=== PATIENT | male | born 1950 | race Caucasian/White ===

== ENCOUNTER 2016-10-08 10:22 | Emergency (ER) | payer MEDICARE, BC ==
[2016-10-08] MEDS ORDERED: Ketorolac INJ* 30 MG/ML 1 ML VIAL IM ONE (13:27)
--- NOTE | 2016-10-08 13:41 | RAD ---
CLINICAL HISTORY: Flank pain COMPARISON: October 01, 2002 TECHNIQUE: Multiple contiguous axial CT scans were obtained of the abdomen and pelvis, without intravenous contrast enhancement. Coronal and sagittal multiplanar reformations are submitted for review. Oral contrast was not administered. FINDINGS: The study is limited by the lack of intravenous contrast. This limits evaluation of the solid organs and vasculature. LUNG BASES: The lung bases are clear. LIVER: The liver is normal in shape, size, contour, and attenuation. BILE DUCTS: There is no intrahepatic or extrahepatic biliary dilatation. GALLBLADDER: The gallbladder is normal, without pericholecystic inflammatory change. PANCREAS: The pancreas is normal, without mass or ductal dilatation. SPLEEN: There are multiple calcified granulomas of the spleen UPPER GI TRACT: Evaluation of the gastrointestinal tract is limited by incomplete gastric distention. The upper GI tract is unremarkable. SMALL BOWEL AND MESENTERY: The small bowel is normal in contour, course, and caliber. There is no obstruction or dilatation. COLON: The colon is normal in contour, course, caliber. There is no pericolonic inflammatory change. ADRENALS: Normal bilaterally. KIDNEYS: There is mild perinephric stranding on the left. There is a 0.4 cm calculus of the proximal left ureter at the UPJ with mild pelvocaliectasis.. BLADDER: The bladder is smooth in contour. PELVIC ORGANS: The prostate gland is normal. The seminal vesicles are symmetric. 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 IVC: Unremarkable LYMPH NODES: There is no lymphadenopathy by size criteria. ABDOMINAL WALL: There is no evidence for abdominal wall hernia. BONES AND SOFT TISSUES: Degenerative changes are noted OTHER: None IMPRESSION: 0.4 CM LEFT UPJ STONE WITH MILD LEFT-SIDED HYDRONEPHROSIS
[2016-10-08 14:07] LABS: Hematocrit 50 % (42-52); Mean Corpuscular HGB Conc 32 g/dl (31-36); Mean Corpuscular Hemoglobin 28 pg (27-31); Mean Corpuscular Volume 88 fL (80-94); Mean Platelet Volume 7 um3 (7.4-10.4); Red Cell Distribution Width 14 % (10.5-15); White Blood Count 15.6 10^3/ul (3.5-10.8)
[2016-10-08 14:17] LABS: Urine Bacteria Absent (Absent); Urine Bilirubin Negative (Negative); Urine Glucose 1+(50 mg/dL) (Negative); Urine Nitrite Negative (Negative)
[2016-10-08 14:24] LABS: Albumin 4.4 g/dL (3.2-5.2); BUN/Creatinine Ratio 18.9 (8-20); Calcium 9.7 mg/dL (8.6-10.3); EGFR African American 72.5 (>60); EGFR Non-African American 56.4 (>60); Globulin 3.6 g/dL (2-4); Potassium 4.1 mmol/L (3.5-5.0); Total Bilirubin 1.3 mg/dL (0.2-1.0)
--- NOTE | 2016-10-08 14:52 | RAD ---
HISTORY: Left kidney stone COMPARISONS: CT dated September 08, 2016 VIEWS: Frontal views of the abdomen. FINDINGS: BOWEL: There is a nonobstructive bowel gas pattern. There is a large amount of stool within the colon. CALCULI: There is a 0.4 cm calculus overlying the left hemiabdomen correspond to the finding noted on CT BONES AND SOFT TISSUES: Mild degenerative changes are noted OTHER FINDINGS: The lung bases are clear. There is no subphrenic gas. IMPRESSION: LEFT NEPHROLITHIASIS
[2016-10-08 17:40] VITALS: BP 141/86
--- NOTE | 2016-10-08 21:20 | CONS ---
CC: Dr. Laura Durand, Emergency Department; Conrad Lee MD * UROLOGY CONSULTATION: DATE OF CONSULTATION: 10/08/16 AGE: 66 years, male. REQUESTING PHYSICIAN: Dr. Laura Durand in the emergency department. DIAGNOSES: 1. Left flank pain. 2. Calculus, left proximal ureter. HISTORY OF PRESENT ILLNESS: Matheus Jensen is a 66-year-old gentleman, who had a sudden onset of left flank pain earlier this morning. He presented to the emergency room after the pain got fairly severe and a CT scan revealed an approximately 4 mm calculus in the left proximal ureter at or just below the left ureteropelvic junction. This is associated with mild left hydronephrosis. PAST MEDICAL HISTORY: Unremarkable. Specifically, there is no history of any major cardiovascular issues. His major medical issues include: 1. Hypertension. 2. Hypothyroidism. 3. Borderline diabetes mellitus. PAST SURGICAL HISTORY: Significant for left leg patellar tendon surgery. MEDICATIONS ON ADMISSION: 1. Metformin 250 mg twice a day. 2. Levothyroxine 137 mcg daily. 3. Aspirin 81 mg daily. 4. Diltiazem 1 tablet daily. 5. Losartan 100 mg daily. 6. Lipitor 10 mg daily. ALLERGIES: No known drug allergies. REVIEW OF SYSTEMS: He is otherwise in excellent health. He denies any chest pain or shortness of breath. PHYSICAL EXAM: General: Reveals a pleasant middle-aged gentleman. Vital Signs : Blood pressure is 140/80, pulse 80 per minute, regular. Cardiovascular Exam: Regular rate and rhythm. S1 and S2. Lungs are clear bilaterally. Abdomen is soft with mild left flank tenderness. DIAGNOSTIC STUDIES/LAB DATA: I reviewed the CT and the labs and had a detailed discussion with the patient and with Dr. Durand regarding the management options. The complicating factor is that he is supposed to leave town in the next 24 to 36 hours and will be away for 2 weeks. PLAN: My recommendation is for conservative management in the form of increased hydration, oral analgesics as needed, and alpha-blockers to try and promote medical expulsive therapy. I have instructed him to call me if there is any severe pain or vomiting. Otherwise, I plan to see him in my office in followup within the next 24 hours. [id number]/[facility] #: [id number] [facility]
--- NOTE | 2016-10-08 22:57 | ED ---
Sally Pablo SooYoung, scribed for Laura Durand MD on 10/08/16 at 1322 . Back Pain - HPI Summary HPI Summary: A 66y/o M presents to ED referred by Dr. Alejo, PCP is Dr. Lee, with c/o fluctuating L flank pain onset approx 0630. Pain radiates occasionally toward groin. At bedside, pain is rated as a 4-5 out of 10. No specified associated sx. Denies dyspnea, CP, abd pain. Has not taken any pain meds today. PMHx: particularly no hx kidney stones. Medications reviewed. Takes metformin for insulin resistance. HbA1c's ar 6.4 range per pt. Also hx HTN. - History of Current Complaint Chief Complaint: EDFlankPain Stated Complaint: LT SIDE BACK/FLANK PAIN Time Seen by Provider: 10/08/16 13:17 Hx Obtained From: Patient Onset/Duration: Gradual Onset, Lasting Hours, Still Present Onset/Duration: Started Hours Ago, Atraumatic, Still Present Timing: Constant Back Pain Location: Is Discrete @ - L flank, Radiates To - left groin Severity Initially: Moderate Severity Currently: Moderate Pain Intensity: 5 Pain Scale Used: 0-10 Numeric Character: Sharp Aggravating Symptom(s): Nothing Alleviating Symptom(s): Nothing Associated Signs And Symptoms: Positive: Flank Pain, Other - neg: CP, dyspnea. Negative: Abdominal Pain - Allergies/Home Medications Allergies/Adverse Reactions: Allergies Allergy/AdvReac Type Severity Reaction Status Date / Time No Known Allergies Allergy Verified 12/12/14 13:27 Home Medications: Home Medications Diltiazem HCl PO DAILY 10/08/16 [History] Metformin HCl 250 mg PO BID 10/08/16 [History Confirmed 10/08/16] PMH/Surg Hx/FS Hx/Imm Hx Previously Healthy: No Endocrine/Hematology History: Reports: Hx Diabetes - pre-diabetic, insulin resistant, Hx Thyroid Disease - hypo Cardiovascular History: Reports: Hx Hypercholesterolemia, Hx Hypertension Denies: Hx Pacemaker/ICD, Hx Peripheral Vascular Disease Respiratory History: Reports: Hx Sleep Apnea Denies: Hx Asthma, Hx Chronic Obstructive Pulmonary Disease (COPD) GI History: Denies: Hx Ulcer Musculoskeletal History: Denies: Hx Arthritis, Hx Osteoporosis Sensory History: Denies: Hx Cataracts, Hx Contacts or Glasses, Hx Glaucoma, Hx Hearing Aid Opthamlomology History: Denies: Hx Cataracts, Hx Contacts or Glasses, Hx Glaucoma Neurological History: Denies: Hx Headaches, Hx Seizures, Hx Transient Ischemic Attacks (TIA) Psychiatric History: Denies: Hx Anxiety, Hx Depression, Hx Panic Disorder - Surgical History Surgery Procedure, Year, and Place: Tonsillectomy. Vasectomy. [place] Teeth Removal. lt patella tendon 2011 Hx Anesthesia Reactions: No Infectious Disease History: No Infectious Disease History: Denies: Hx Hepatitis, Hx Human Immunodeficiency Virus (HIV), Traveled Outside the [place] in Last 30 Days - Family History Known Family History: Positive: Cardiac Disease, Hypertension, Diabetes, Other - CVA, CA - Social History Occupation: Employed Full-time Lives: With Family Alcohol Use: Weekly Alcohol Amount: 1-2/WEEK Substance Use Type: Reports: None Smoking Status (MU): Never Smoked Tobacco Review of Systems Constitutional: Negative Negative: Chest Pain Negative: Shortness Of Breath Gastrointestinal: Negative Positive: see HPI, flank pain - L. Negative: hematuria, incontinence Musculoskeletal: Negative Skin: Negative Neurological: Negative Psychological: Normal All Other Systems Reviewed And Are Negative: Yes Physical Exam Triage Information Reviewed: Yes Vital Signs On Initial Exam: Initial Vitals Temp Pulse Resp BP Pulse Ox 96.8 F 71 19 170/95 97 10/08/16 10:27 10/08/16 10:27 10/08/16 10:27 10/08/16 10:27 10/08/16 10:27 Vital Signs Reviewed: Yes Appearance: Positive: Well-Appearing, Well-Nourished, Pain Distress - mild Skin: Positive: Warm, Skin Color Reflects Adequate Perfusion Head/Face: Positive: Normal Head/Face Inspection Eyes: Positive: Conjunctiva Clear ENT: Positive: Normal ENT inspection Neck: Positive: Supple Respiratory/Lung Sounds: Positive: Clear to Auscultation, Breath Sounds Present Cardiovascular: Positive: RRR, Pulses are Symmetrical in both Upper and Lower Extremities. Negative: Murmur Abdomen Description: Positive: Nontender, Soft, CVA Tenderness (L). Negative: No Organomegaly, Bruit, Distended, Guarding, Hernia @, Hepatomegaly, McBurney's Point Tenderness, Peritoneal Signs, Pulsatile Mass, Splenomegaly Bowel Sounds: Positive: Present Male Genital Exam: Positive: normal genitalia Musculoskeletal: Positive: Strength/ROM Intact. Negative: Edema Left, Edema Right Neurological: Positive: Sensory/Motor Intact, Alert, Oriented to Person Place, Time. Negative: Facial Droop, Focal Deficit @, Slurred Speech Psychiatric: Positive: Normal - [place] Coma Scale Coma Scale Total: 15 Diagnostics - Vital Signs Vital Signs Temp Pulse Resp BP Pulse Ox 10/08/16 10:31 96.8 F 78 19 170/95 98 10/08/16 10:27 96.8 F 71 19 170/95 97 - Laboratory Result Diagrams: 10/08/16 13:55 10/08/16 13:55 Lab Statement: Any lab studies that have been ordered have been reviewed, and results considered in the medical decision making process. - Radiology ABD XR Xray Interpretation: Positive (See Comments) - IMPRESSION: LEFT NEPHROLITHIASIS Radiology Interpretation Completed By: Radiologist - CT ABD/PEL CT Interpretation: Positive (See Comments) - IMPRESSION: 0.4 CM LEFT UPJ STONE WITH MILD LEFT-SIDED HYDRONEPHROSIS CT Interpretation Completed By: Radiologist Re-Evaluation - Re-Evaluation 1 Re-Evaluation Time: 14:09 Change: Improved Comment: Discussing A/P CT results with pt. Awaiting call bcak from Dr. Jones, urology. Pt states having future travel plans in two days for work. 2 Re-Evaluation Time: 14:23 Change: Improved Comment: Pt taking Metformin. Discussing UA results, consult with Dr. Jones. Pt rates his pain as 1-2/10. Back Pain Course/Dx - Course Course Of Treatment: Pt is a 66 y/o M referred by PCP with c/o fluctuating L flank pain onset approx 0630. Radiating toward groin. No specified associated sx. Denies dyspnea, CP, abd pain. Has not taken any pain meds today. No PMHx of kidney stones. Medications reviewed. Pt given Toradol in ED, 30mg IM with relief. UA shows blood, not wbc's, so despite wbc count of 15.6, do not think there is UTI associated. Elevated wbc count probable stress response. ABD/PEL CT shows "0.4 CM LEFT UPJ STONE WITH MILD LEFT-SIDED HYDRONEPHROSIS." ABD XR shows left nephrolithiasis. Dr. Jones will see pt in ED. - Diagnoses Differential Diagnosis/HQI/PQRI: Positive: Neoplasm, Renal Colic, Strain, Sprain Provider Diagnoses: Blood pressure under poor control., L kidney stones with hydronephrosis - Provider Notifications Discussed Care Of Patient With: Brian Jones - urology Time Discussed With Above Provider: 14:20 Instructed by Provider To: MD Will See In ED - will review scans, requested abd XR Discharge - Discharge Plan Condition: Stable Disposition: HOME Prescriptions: Tamsulosin CAP* [Flomax CAP*] 0.4 mg PO DAILY #30 cap oxyCODONE/Acetamin 5/325 MG* [Percocet 5/325 TAB*] 1 tab PO Q4H PRN #18 tab MDD 6 PRN Reason: Pain Patient Education Materials: Kidney Stones (ED), Tamsulosin (By mouth), Oxycodone/Acetaminophen (By mouth) Referrals: Conrad Lee MD [Primary Care Provider] - Brian Jones MD [Medical Doctor] - 1 Day (Follow up with Dr. Jones tomorrow.) Additional Instructions: Follow up with Dr. Jones, urologist, tomorrow. Please return to the ED if you experience new or worsening symptoms. Consult Consult: 1515: Consult with Dr. Jones, urologist Will see pt in ED. 1726: Consult with Dr. Jones, urologist Dr. Jones saw pt in ED. States OK to D/C home and pt to f/u with Robret tomorrow. The documentation as recorded by the Sally lazaro SooYoung accurately reflects the service I personally performed and the decisions made by , Laura Durand MD.
== END 2016-10-08 17:49 | disposition home or self-care (01) ==
LOC: ED 10:22
DX: N13.2 Hydronephrosis with renal and ureteral calculous obstruction (principal); N20.0 Calculus of kidney; R10.84 Generalized abdominal pain; R06.00 Dyspnea, unspecified; R07.9 Chest pain, unspecified
CPT/HCPCS: 36415; 74000; 74176; 80053; 81003; 81015; 85025; 96372; 99282; J1885

== ENCOUNTER 2016-11-02 06:15 | Day surgery (SDC) | payer MEDICARE, BC ==
--- NOTE | 2016-10-29 21:48 | HP ---
CC: Dr. Conrad Lee * HISTORY AND PHYSICAL: DATE OF ADMISSION: 11/02/16 ADMITTING DIAGNOSES: 1. Calculus, left proximal ureter. 2. Left flank pain. PLANNED PROCEDURE: Left stent insertion and shock lithotripsy of left ureteral calculus. SURGEON: Dr. Jones. ADMITTING HISTORY AND PHYSICAL: Matheus Jensen is a 66-year-old gentleman who I had originally evaluated in the emergency department on 10/08/16 for left flank pain secondary to a calculus in the left proximal ureter. He has been managed conservatively for the last several weeks and has been on Flomax and recent followup revealed a persistent calculus in the left proximal ureter, relatively unchanged in position with persistent left hydronephrosis. PAST MEDICAL HISTORY: Significant for: 1. Diabetes mellitus. 2. Hypothyroidism. 3. Hypertension. MEDICATIONS ON ADMISSION: 1. Levothyroxine 137 mcg a day. 2. Metformin 250 mg twice a day. 3. Aspirin 81 mg daily. 4. Diltiazem 1 tablet daily. 5. Lipitor 10 mg a day. 6. Losartan 100 mg a day. ALLERGIES: No known drug allergies. REVIEW OF SYSTEMS: He is otherwise in excellent health. He is physically very active and does a lot of long distance bicycling. He denies any chest pain or shortness of breath. PHYSICAL EXAMINATION GENERAL: Reveals a pleasant, fit-appearing gentleman. VITAL SIGNS: Blood pressure is 146/90, pulse 74 per minute, regular, oxygen saturation 97% on room air. LUNGS: Clear bilaterally. CARDIOVASCULAR: Regular rate and rhythm. S1 and S2. ABDOMEN: Soft with mild left flank tenderness. IMPRESSION: A 66-year-old gentleman with a persistent left proximal ureteral calculus and mild left hydronephrosis going on for more than 3 weeks now. Plan is for left ureteral stent insertion and shockwave lithotripsy of left ureteral calculus. [id number]/[facility] #: [id number] [facility]
[~2016-11-02 06:15] MED LIST: Buffered Lidocaine 0.9% SYRIN* 5 ML/SYR SYRINGE INTRADERM ONE; Dexamethasone IV* 4 MG/ML 1 ML (4 MG) IV SLOW PU ONE; Famotidine IV* 10 MG/ML 2 ML (20 mg) IV ONE
[2016-11-02] MEDS ORDERED: Dexamethasone IV* 4 MG/ML 1 ML (4 MG) ONE (06:28)
[2016-11-02] MEDS ORDERED: cefTRIAXone(*) 2 GM ADDV.VIAL IVPB ONE (06:28)
[2016-11-02] MEDS ORDERED: Famotidine IV* 10 MG/ML 2 ML (20 mg) ONE (06:29)
[2016-11-02] MEDS ORDERED: Ondansetron INJ* 2 MG/ML VIAL ONE (07:21)
[2016-11-02] MEDS ORDERED: Propofol* 10 MG/ML 20 ML BTL IV PUSH ONE (07:21)
[2016-11-02] MEDS ORDERED: Midazolam* 1 MG/ML 5 ML VIAL (5 MG) ONE (07:22)
[2016-11-02] MEDS ORDERED: Iohexol 180 (CONTRAST) 10 ML SDV IV ONE (07:28)
[2016-11-02] MEDS ORDERED: DiMENhydriNATE IV* 50 MG/ML VIAL IV PUSH PRN (07:38)
[2016-11-02] MEDS ORDERED: oxyCODONE/Acetamin 5/325 MG* TAB PO PRN (07:38)
[2016-11-02] MEDS ORDERED: Ondansetron INJ* 2 MG/ML VIAL IV PRN (07:38)
[2016-11-02] MEDS ORDERED: fentaNYL* 50 MCG/ML 2 ML VIAL (100 MCG VIAL) IV PRN (07:38)
[2016-11-02] MEDS ORDERED: Phenylephrine IV* 40 MCG/ML 10 ML SYRINGE ONE (07:43)
[2016-11-02] MEDS ORDERED: Chloroprocaine 2%* 20 ML VIAL ONE (07:43)
--- NOTE | 2016-11-02 08:03 | RAD ---
Indication: Renal calculi Single view of the abdomen demonstrates question of a calculi overlying the medial left kidney. This is in the region of the previously identified calculi. IMPRESSION: Calcification medial to the lower pole left kidney presumably within the left ureter unchanged from October 28, 2016. Remainder of the abdomen is unremarkable.
[2016-11-02] MEDS ORDERED: Furosemide IV* 10 MG/ML 2 ML VIAL (20 MG) ONE (08:10)
[2016-11-02] MEDS ORDERED: Tamsulosin CAP* 0.4 MG ONE (09:19)
[2016-11-02 10:11] VITALS: BP 132/83
--- NOTE | 2016-11-03 08:30 | OP ---
CC: Conrad Lee MD * DATE OF OPERATION: 11/02/16 - [facility] DATE OF : 46. SURGEON: Brian Jones MD. ANESTHESIOLOGIST: Dr. Jair Sorensen. ANESTHESIA: Spinal. PRE-OP DIAGNOSIS: Calculus, left proximal ureter (ureteropelvic junction) POST-OP DIAGNOSIS: Calculus, left proximal ureter (ureteropelvic junction) OPERATIVE PROCEDURE: 1. Shockwave lithotripsy of left ureteral calculus. 2. Cystoscopy, left retrograde pyelogram and left stent insertion. COMPLICATIONS: None. STENT USED: 6-Cuban stent, left ureter. POSTOPERATIVE CONDITION: Stable. OPERATIVE FINDINGS: 1. Normal appearing bladder. 2. Moderate left hydronephrosis with fairly narrowed left ureter and 4 mm calculus at left uteropelvic junction. INDICATIONS: Matheus Jensen is 66-year-old gentleman who has had a persistent calculus in the proximal left ureter for the last 3 weeks. He is now being brought in for lithotripsy and stent insertion. DESCRIPTION OF PROCEDURE: After induction of spinal anesthesia, the patient was placed on the lithotripsy table in supine position. The calculus which was faintly opaque was localized at the left ureteropelvic junction and using fluoroscopy, shockwave lithotripsy was commenced at a rate of 90 shocks per minute. Periodic imaging revealed good localization and fragmentation and a total of 1800 shocks were delivered. Next the patient was placed in dorsal lithotomy position and cystoscopy was performed. The urethra was normal. There was mild median enlargement of the prostate and a normal appearing bladder. A guidewire was introduced into the left ureter and open-ended catheter was advanced, 4-Cuban, and the ureter was found to be fairly narrow especially at the area just below the uteropelvic junction. Retrograde pyelogram revealed a moderate degree of left hydronephrosis more than had been on the office imaging earlier. A 6-Cuban stent was introduced and positioned under fluoroscopic monitoring with good proximal and distal positioning obtained. A 16 Cuban Michele was placed for temporary bladder drainage. The patient tolerated the procedure satisfactorily and was transferred back to the recovery area in stable condition. [id number]/[facility] #: [id number] [facility]
== END 2016-11-02 10:51 | disposition home or self-care (01) ==
LOC: OR 06:15
PROVIDERS: ATTEND Urology
DX: N13.2 Hydronephrosis with renal and ureteral calculous obstruction (principal); E11.9 Type 2 diabetes mellitus without complications; Z79.84 Long term (current) use of oral hypoglycemic drugs; E03.9 Hypothyroidism, unspecified; I10 Essential (primary) hypertension; Z79.82 Long term (current) use of aspirin
CPT/HCPCS: 74000; C1876; J0696; J1100; J1940; J2250; J2400; J2405; J2704

== ENCOUNTER 2017-10-27 11:57 | Day surgery (SDC) | payer MEDICARE, OTHER ==
[~2017-10-27 11:57] MED LIST changes: +Acetaminophen TAB* 325 MG PO PRN; -Dexamethasone IV* 4 MG/ML 1 ML (4 MG) IV SLOW PU ONE; -Famotidine IV* 10 MG/ML 2 ML (20 mg) IV ONE
[2017-10-27] MEDS ORDERED: Midazolam* 1 MG/ML 5 ML VIAL (5 MG) ONE (14:37)
[2017-10-27] MEDS ORDERED: fentaNYL* 50 MCG/ML 2 ML VIAL (100 MCG VIAL) ONE (15:12)
[2017-10-27 15:39] VITALS: BP 108/68
--- NOTE | 2017-10-28 07:29 | OP ---
DATE OF OPERATION: 10/27/17 - [facility] DATE OF : 46 SURGEON: Jair Fabian MD PREOPERATIVE DIAGNOSIS: Cataract right eye. POSTOPERATIVE DIAGNOSIS: Cataract right eye. OPERATIVE PROCEDURE: Extracapsular cataract extraction with intraocular lens implant right eye. DESCRIPTION OF PROCEDURE: The patient was brought to the operating room after being given 1/2% Alcaine with epinephrine drops in the preoperative area. The eye was prepped and draped in the usual sterile fashion. Sterile drape and eyelid speculum were placed. Again, topical 1/2% Alcaine with epinephrine was given. A paracentesis incision was made at the 9 o'clock position with the No.75 blade. Clear cornea incision 2.2 x 2.2-mm was created at the 12 o'clock position starting at the anterior limbus using the 2.2-mm keratome. The anterior chamber was irrigated with 0.4 mL of 1% non-preservative intracameral lidocaine and filled with DisCoVisc. A capsulorrhexis was completed using the cystotome and the Utrata forceps. Hydrodissection was performed with balanced salt solution. The lens nucleus was removed with the Phacoemulsification handpiece without incident. Cortex was removed with the irrigation-aspiration handpiece. The capsular bag was re-inflated using DisCoVisc and an [id number] 22.5 implant was inserted with the shooter. The irrigation-aspiration handpiece was used to remove all residual DisCoVisc. The eye was refilled with balanced salt solution and the wound checked and found to be watertight. Topical Maxitrol drops were given. [id number]/[facility] #: [id number] [facility]
== END 2017-10-27 15:45 | disposition home or self-care (01) ==
LOC: OREAST 11:57
PROVIDERS: ATTEND Specialist
DX: H25.811 Combined forms of age-related cataract, right eye (principal); E11.9 Type 2 diabetes mellitus without complications; Z79.84 Long term (current) use of oral hypoglycemic drugs; H35.372 Puckering of macula, left eye; I10 Essential (primary) hypertension; E03.9 Hypothyroidism, unspecified
CPT/HCPCS: J2250; J3010; V2632

== ENCOUNTER 2017-11-03 06:20 | Day surgery (SDC) | payer MEDICARE, OTHER ==
[2017-11-03] MEDS ORDERED: Midazolam* 1 MG/ML 2 ML VIAL (2 MG) ONE (07:20)
[2017-11-03 08:14] VITALS: BP 126/78
[2017-11-03] MEDS ORDERED: Povidone Iodine 5% OPTH* 30 ML BTL ONE (13:40)
[2017-11-03] MEDS ORDERED: Neomycin/Polymy/Dex OPTH.SUSP* MAXITROL 0.1% 5 ML ONE (13:40)
[2017-11-03] MEDS ORDERED: Lidocaine 1%* 5 ML VIAL ONE (13:40)
[2017-11-03] MEDS ORDERED: Lidocaine 2% EPI 1:200000 MPF*10-20 ML VIAL ONE (13:40)
[2017-11-03] MEDS ORDERED: Cyclopentolate 1% OPTH.SOL* 2 ML BTL ONE (13:40)
[2017-11-03] MEDS ORDERED: Phenylephrine 2.5% OPTH.SOL* 2 ML BTL ONE (13:40)
[2017-11-03] MEDS ORDERED: acetaZOLAMIDE TAB* 250 MG ONE (13:40)
[2017-11-03] MEDS ORDERED: Proparacaine 0.5% OPHTH.SOL* 15 ML BTL ONE (13:41)
[2017-11-03] MEDS ORDERED: Ketorolac 0.5% OPHTH (NF) 0.5 % 5 ML BTL ONE (13:41)
--- NOTE | 2017-11-03 14:10 | OP ---
OPERATIVE NOTE: DATE OF OPERATION: 11/03/17 DATE OF : 46 SURGEON: Jair Fabian M.D. PREOPERATIVE DIAGNOSIS: Cataract, left eye. POSTOPERATIVE DIAGNOSIS: Cataract, left eye. OPERATIVE PROCEDURE: Extracapsular cataract extraction with intraocular lens implant, left eye. DESCRIPTION OF PROCEDURE: The patient was brought to the operating room after being given 1/2% Alcai ne with epinephrine drops in the preoperative area. The eye was prepped and draped in the usual ster ile fashion. Sterile drape and eyelid speculum were placed. Again, topical 1/2% Alcaine with epinep hrine was given. A paracentesis incision was made at the 3 o'clock position with the No.75 blade. Cl ear cornea incision 2.2 x 2.2-mm was created at the 6 o'clock position starting at the anterior limbu s using the 2.2-mm keratome. The anterior chamber was irrigated with 0.4 mL of 1% non-preservative i ntracameral lidocaine and filled with DisCoVisc. A capsulorrhexis was completed using the cystotome and the Utrata forceps. Hydrodissection was performed with balanced salt solution. The lens nucleus was removed with the Phacoemulsification handpiece without incident. Cortex was removed with the irr igation-aspiration handpiece. The capsular bag was re-inflated using DisCoVisc and an [id number] impl ant was inserted with the shooter. The irrigation-aspiration handpiece was used to remove all residua l DisCoVisc. The eye was refilled with balanced salt solution and the wound checked and found to be watertight. Topical Maxitrol drops were given. [id number]/[facility] #: [id number]
== END 2017-11-03 08:18 | disposition home or self-care (01) ==
LOC: OREAST 06:20
PROVIDERS: ATTEND Specialist
DX: H25.812 Combined forms of age-related cataract, left eye (principal); H35.372 Puckering of macula, left eye; E11.9 Type 2 diabetes mellitus without complications; Z79.84 Long term (current) use of oral hypoglycemic drugs; E78.00 Pure hypercholesterolemia, unspecified; I10 Essential (primary) hypertension; E03.9 Hypothyroidism, unspecified; G47.33 Obstructive sleep apnea (adult) (pediatric)
CPT/HCPCS: A9270-GY; J2250; V2788